=== PATIENT | female | born 1935 | race Caucasian/White ===

== ENCOUNTER 2020-04-08 12:44 | Inpatient (IN) | payer OTHER, SELFPAY ==
[~2020-04-08] VITALS: Ht 165.1 cm; Wt 46.7 kg
--- NOTE | 2020-04-08 12:46 | NUR ---
BIBA TAKEN TO BED 10
[2020-04-08 12:52] VITALS: BP 86/46
--- NOTE | 2020-04-08 12:55 | NUR ---
pt noted to have soiled herself, pt clean up by juliana Colmenares and juliana Caba. warm blankets, cleanlinens and gown given. IV fluids running with no s/s of infiltration noted.
[2020-04-08] MEDS ORDERED: NACL 0.9% 1,000 ML IV SCH (12:56)
[2020-04-08] MEDS ORDERED: cefTRIAXone 1,000 MG in DEXT 5% MINI-BAG PLUS 50 ML IV ONE (13:00)
[2020-04-08 13:26] LABS: BASOPHILS # (AUTO) 0.1 K/uL (0.00-0.22); BASOPHILS % (AUTO) 0.7 % (0.0-2.0); EOSINOPHILS # (AUTO) 0.1 K/uL (0-0.4); EOSINOPHILS % (AUTO) 1.6 % (0.0-4.0); HEMATOCRIT 33.6 % (36-48); HEMOGLOBIN 11.5 g/dL (12.0-16.0); LYMPHOCYTES # (AUTO) 0.9 K/uL (2.5-16.5); MEAN CORPUSCULAR HEMOGLOBIN 33 pg (27-31); MEAN CORPUSCULAR HGB CONC 34 g/dL (33-37); MEAN CORPUSCULAR VOLUME 97.6 fL (80-94); MONOCYTES # (AUTO) 0.6 K/uL (0.8-1.0); MONOCYTES % (AUTO) 7.6 % (1.7-9.3); NEUTROPHILS # (AUTO) 6.8 K/uL (1.8-7.7); NEUTROPHILS % (AUTO) 80.1 % (42.2-75.2); PLATELET COUNT (AUTO) 322 K/uL (140-450); RED BLOOD CELL COUNT(AUTO) 3.45 MIL/uL (4.20-5.40); RED CELL DISTRIBUTION WIDTH 13.2 % (11.6-13.7); WHITE BLOOD COUNT (AUTO) 8.5 K/uL (4.8-10.8)
--- NOTE | 2020-04-08 13:30 | NUR ---
# 14 FR Urinary catheter inserted utilizing sterile technique. Immediate return of cl yellow urin ml 30 urine noted. Urine sample collected and sent to lab. Pt tolerated procedure well.
[2020-04-08] MEDS ORDERED: cefTRIAXone 1,000 MG VIAL ONE (13:41)
[2020-04-08 13:45] LABS: APPEARANCE,URINE CLEAR (CLEAR); BILIRUBIN,URINE NEGATIVE (NEGATIVE); BLOOD, URINE NEGATIVE (NEGATIVE); COLOR,URINE YELLOW (YELLOW); LEUKOCYTE ESTERASE ,URINE NEGATIVE (NEGATIVE); NITRITE, URINE NEGATIVE (NEGATIVE); UGLUCOSE NEGATIVE (NEGATIVE)
[2020-04-08 13:46] LABS: ANION GAP 13.8 (8-16); CARBON DIOXIDE 27.3 mmol/L (21-32); CHLORIDE 101 mmol/L (98-107); GLUCOSE 118 mg/dL (74-106); POTASSIUM 4.1 mmol/L (3.5-5.1); SODIUM SERUM 138 mmol/L (136-145); UREA NITROGEN, BLOOD 23 mg/dL (7-18)
[2020-04-08 13:47] LABS: ALBUMIN 2.3 g/dL (3.4-5.0); ASPARTATE AMINOTRANSFERASE 15 U/L (15-37); CREATININE 0.8 mg/dL (0.6-1.3); TOTAL BILIRUBIN 0.1 mg/dL (0.0-1.0)
--- NOTE | 2020-04-08 13:50 | NUR ---
RECEIVED REPORT FROM ER NURSE. PT IN BED. ALERT AND ORIENTED X1, NO C/O PAIN, NO SOB, RESPIRATIONS ARE EVEN AND UNLABORED, NONAMBULATORY. ON ROOM AIR. WITH IV ON RAC 18G. SKIN INTACT. SAFETY MEASURES IN PLACE. CALL LIGHT WITHIN REACH. WILL CONTINUE TO MONITOR.
--- NOTE | 2020-04-08 13:50 | NUR ---
ua,blood,covid,blood x2 for c&s, influenza, ekg, xray, er md dr resendiz at bedside
[2020-04-08] MEDS: NACL 0.9% 1,000 ML IV SCH (13:51)
[2020-04-08] MEDS ORDERED: ONDANSETRON 4 MG/2 ML VIAL IM/IVP PRN (13:55)
[2020-04-08] MEDS ORDERED: HYDROcodone/APAP 7.5/325 MG 1 TAB PO PRN (13:55)
[2020-04-08] MEDS ORDERED: ACETAMINOPHEN 325 MG TAB PO PRN (13:55)
[2020-04-08] MEDS ORDERED: DOCUSATE SODIUM 100 MG GELCAP PO PRN (13:55)
[2020-04-08] MEDS ORDERED: NACL 0.9% 500 ML IV ONE (14:00)
[2020-04-08] MEDS ORDERED: FLUT0.0571 NS (14:12)
[2020-04-08] MEDS ORDERED: FURO-572 PO (14:12)
[2020-04-08] MEDS ORDERED: LISI10TA11 PO (14:12)
[2020-04-08] MEDS ORDERED: METF500T2 PO (14:12)
[2020-04-08] MEDS ORDERED: ATOR10TA PO (14:12)
[2020-04-08] MEDS ORDERED: ISOS20TA13 PO (14:12)
[2020-04-08] MEDS ORDERED: DOCU-299 PO (14:12)
[2020-04-08] MEDS ORDERED: CARV3.12 PO (14:12)
[2020-04-08] MEDS ORDERED: RISP0.5T3 PO (14:12)
[2020-04-08] MEDS ORDERED: GLIP5TER PO (14:12)
[2020-04-08 14:24] LABS: MAGNESIUM 1.6 mg/dL (1.8-2.4); PHOSPHORUS 3.2 mg/dL (2.5-4.9)
[2020-04-08 14:25] LABS: CHOL/HDL RATIO 2.9 (1-4.5)
[2020-04-08 14:26] LABS: FREE T4 (FREE THYROXINE) 1.06 ng/dL (0.76-1.46); THYROID STIMULATING HORMONE 1.53 uIU/mL (0.34-3.74)
[2020-04-08] MEDS ORDERED: CLOP75TA26 PO (14:37)
[2020-04-08] MEDS ORDERED: METF-988 PO (14:37)
[2020-04-08 14:46] LABS: PROTHROMBIN TIME 9.9 secs (10.8-13.4)
--- NOTE | 2020-04-08 14:50 | NUR ---
Patient will be admitted to care of DR RAMOS. Admited to TELE. Will go to room 118. Belongings list completed. Report to PARKER SANDOVAL.
[2020-04-08] MEDS ORDERED: MECLIZINE 25 MG TAB PO PRN (15:00)
[2020-04-08] MEDS ORDERED: INSULIN LISPRO SLIDING SCALE 100 UNITS/ML VIAL SUBQ PRN (15:00)
[2020-04-08 16:00] VITALS: BP 108/59
--- NOTE | 2020-04-08 17:00 | NUR ---
PERCARE DONE WITH TIER TRUCK DRIVER. NO BM NOTED. BLOOD SUGAR 128. NO COVERAGE NEEDED. DUE MEDS GIVEN
[2020-04-08] MEDS: metFORMIN 500 MG TAB PO SCH (17:06)
[2020-04-08] MEDS: BLOOD GLUCOSE MONITORING 1 DEV DEV FS SCH ×2 (17:06→21:16)
--- NOTE | 2020-04-08 18:00 | NUR ---
PT HAD AN UNWITNESSED FALL. PT SEEN SITTING ON THE FLOOR LEANING BY THE SINK. PT PULLED OUT IV, PULLED OUT TELE MONITOR, AND DISROBED. SIDE RAILS WERE UP, BED IN LOW IN POSITION. INITIAL ASSESSMENT DONE. NO OPEN WOUND OR DISCOLORATION NOTED. PT IS THAI SPEAKING ONLY. THAI SPEAKING CNAS PRESENT TO ASSIST PATIENT. NO C/O PAIN, RESPIRATIONS ARE EVEN AND UNLABORED. WITH CONFUSION PER THAI CNAS. WITH EPISODES OF YELLING AND CURSING AT STAFF ALSO WITH EPISODES OF SCRATCHING STAFF. ASSISTED PT BACK TO BED. RES MD MADE AWARE WITH NEW ORDERS FOR SOFT WRIST RESTRAINTS AND IMAGING TO CHECK FOR FRACTURE
--- NOTE | 2020-04-08 18:40 | NUR ---
PT IN BED AT THIS TIME ATTEMPTING TAKE OFF RESTRAINTS. STILL WITH EPISODE OF SCRATCHING AND YELLING AT STAFF. FLACC 0, NO SOB NOTED. SAFETY PRECAUTIONS AND ALARMS IN PLACE
[2020-04-08] MEDS: MIDODRINE 5 MG TAB PO SCH (18:49)
--- NOTE | 2020-04-08 18:50 | NUR ---
PT OFF UNIT TO RADIOLOGY
--- NOTE | 2020-04-08 19:07 | NUR ---
EKG WAS PERFORMED AND A COPY WAS PROVIDED TO NURSES
--- NOTE | 2020-04-08 19:08 | NUR ---
RECEIVED BEDSIDE REPORT FROM DAY RN. PT OFF UNIT FOR CT HEAD AND CT ABD/PELVIS. PER RN PT IS AAOX1 SLOVAK SPEAKING ONLY. DX:PNA,CP R/O COVID. ISOLATION PER PROTOCOL. PT IS ON ROOM AIR SAT WELL. IV ON R FA 22G INFUSING NS AT 60ML/H. SKIN INTACT. BEDREST. ON NON BEHAVIORAL SOFT WRIST RESTRAINTS D/T PULLING OFF LINES. PT IS DNR. PT IN INCONTINENT.
[2020-04-08 20:00] VITALS: BP 116/62
--- NOTE | 2020-04-08 20:00 | NUR ---
PT BACK FROM CT NO S/S OF DISTRESS. BRIDGE CREW MEMBER FEEDING PT. WILL CONTINUE TO MONITOR.
[2020-04-08] MEDS ORDERED: CARVEDILOL 3.125 MG TAB PO SCH (21:00)
[2020-04-08] MEDS ORDERED: CRUSHER, PILL MC ONE (21:03)
[2020-04-08] MEDS: ATORVASTATIN 20 MG TAB PO SCH (21:07)
[2020-04-08] MEDS: risperiDONE 1 MG TAB PO SCH (21:07)
--- NOTE | 2020-04-08 21:07 | NUR ---
VSS. KATINA MEDICATIONS GIVEN. BG 157 WILL HOLD COVERAGE PT JUST ATE DINNER. PT VERY CONFUSED AAOX1 REMOVED RESTRAINTS TO ASSESS CIRCULATION PT ATTEMPT TO GET OUT OF BED TO GO BUY COFFEE AND REMOVING IV. REAPPLIED FOR SAFETY. BED ALARM ON. WILL ROUND FREQUENTLY
--- NOTE | 2020-04-08 22:30 | NUR ---
PATIENT IS RESTING COMFORTABLY IN BED NO S/S OF DISTRESS.
[2020-04-08] MEDS ORDERED: MAG SULF 2000 MG/WATER PREMIX 50 ML IV ONE (22:50)
--- NOTE | 2020-04-08 23:45 | NUR ---
VSS. MG RIDER FOR MG LEVEL 1.6 NOW INFUSING PER ORDERS. PT IS AGITATED AND YELLING IN DOMINICAN TO NURSE. CHECKED RESTRAINTS REAPPLIED D/T COMBATIVE AND DISRUPTION OF MEDICAL LINES. ALL SAFETY MEASURES ARE IN PLACE. WILL CONTINUE TO MONITOR.
[2020-04-09] VITALS: BP 154/74
--- NOTE | 2020-04-09 02:05 | NUR ---
PT IS AWAKE LAYING COMFORTABLY IN BED. RESTRAINTS REMAIN ON FOR SAFETY. SAT WELL ON ROOM AIR. WILL CONTINUE TO MONITOR.
[2020-04-09 04:00] VITALS: BP 163/79
--- NOTE | 2020-04-09 04:00 | NUR ---
VITAL SIGNS ARE WITHIN NORMAL LIMITS. ALL SAFETY MEASURES ARE IN PLACE. CALL LIGHT IS WITHIN REACH.
--- NOTE | 2020-04-09 05:13 | NUR ---
FED PATIENT AN APPLESAUCE PER REQUEST. PT TOLERATED WELL. ALL NEEDS MET. WILL CONTINUE TO MONITOR.
[2020-04-09] MEDS: NACL 0.9% 1,000 ML IV SCH ×2 (06:17→14:37)
[2020-04-09] MEDS: MIDODRINE 5 MG TAB PO SCH (06:17)
[2020-04-09] MEDS: BLOOD GLUCOSE MONITORING 1 DEV DEV FS SCH ×4 (06:17→20:31)
[2020-04-09] MEDS: CARVEDILOL 3.125 MG TAB PO SCH ×2 (06:20→11:30)
[2020-04-09] MEDS: LISINOPRIL 10 MG TAB PO SCH ×2 (06:20→11:30)
--- NOTE | 2020-04-09 06:20 | NUR ---
BG 132 NO COVERAGE NEEDED. ALL SAFETY MEASURES ARE IN PLACE. CALL LIGHT IS WITHIN REACH.
[2020-04-09 06:27] LABS: T4 (THYROXINE) 6.1 ug/dL (4.5-12.0)
--- NOTE | 2020-04-09 06:38 | NUR ---
KATINA MEDICATION WERE NOT GIVEN D/T PT REFUSING. PT AGITATED AT THIS TIME KICKING AND SCRATCHING. ATTEMPT TO CALM PT DOWN UNSUCCESSFUL WILL TRY AGAIN LATER. SAFETY MEASURES ARE IN PLACE.
[2020-04-09 07:23] LABS: BASOPHILS # (AUTO) 0.1 K/uL (0.00-0.22); BASOPHILS % (AUTO) 1.1 % (0.0-2.0); EOSINOPHILS # (AUTO) 0.2 K/uL (0-0.4); EOSINOPHILS % (AUTO) 3.1 % (0.0-4.0); HEMATOCRIT 36.2 % (36-48); HEMOGLOBIN 12.3 g/dL (12.0-16.0); LYMPHOCYTES # (AUTO) 1.3 K/uL (2.5-16.5); LYMPHOCYTES % (AUTO) 16.1 % (20.5-51.1); MEAN CORPUSCULAR HEMOGLOBIN 33 pg (27-31); MEAN CORPUSCULAR HGB CONC 34 g/dL (33-37); MEAN CORPUSCULAR VOLUME 97.5 fL (80-94); MONOCYTES # (AUTO) 0.7 K/uL (0.8-1.0); NEUTROPHILS # (AUTO) 5.6 K/uL (1.8-7.7); NEUTROPHILS % (AUTO) 70.7 % (42.2-75.2); PLATELET COUNT (AUTO) 311 K/uL (140-450); RED BLOOD CELL COUNT(AUTO) 3.72 MIL/uL (4.20-5.40); RED CELL DISTRIBUTION WIDTH 13.5 % (11.6-13.7); WHITE BLOOD COUNT (AUTO) 7.9 K/uL (4.8-10.8)
[2020-04-09 07:25] LABS: ANION GAP 15.7 (8-16); CHLORIDE 104 mmol/L (98-107); CREATININE 0.7 mg/dL (0.6-1.3); GLUCOSE 112 mg/dL (74-106); POTASSIUM 3.7 mmol/L (3.5-5.1); SODIUM SERUM 139 mmol/L (136-145); UREA NITROGEN, BLOOD 15 mg/dL (7-18)
--- NOTE | 2020-04-09 07:30 | NUR ---
RECEIVED BEDSIDE REPORT FROM RN UROLOGY RN, LOAN, FOR CONTINUITY OF CARE. PT. IS IN BED AND ASLEEP. PT IS AAOX1 FAROESE SPEAKING ONLY, ABLE TO MAKE NEEDS KNOWN. DROPLET ISOLATION PER PROTOCOL. PT IS ON ROOM AIR WITH SAO2 OF 96%, RESPIRATIONS EVEN AND UNLABORED, DRY COUGH PRESENT. IV ON R FA 22G INFUSING NS AT 60ML/H, INTACT AND FLUSHES WELL. SKIN INTACT. BEDREST. ON NON BEHAVIORAL SOFT WRIST RESTRAINTS D/T PULLING OFF LINES. POC DISCUSSED. CALL LIGHT WITHIN REACH. SAFETY PRECAUTIONS IN PLACE. WILL CONTINUE TO MONITOR.
--- NOTE | 2020-04-09 07:33 | NUR ---
GAVE BEDSIDE REPORT TO DAY RN. PT ENDORSED IN STABLE CONDITION.
[2020-04-09 08:00] VITALS: BP 164/61
[2020-04-09] MEDS: glipiZIDE ER 5 MG TABER PO SCH ×2 (08:00→11:30)
[2020-04-09] MEDS: metFORMIN 500 MG TAB PO SCH ×3 (08:00→17:02)
[2020-04-09 08:07] LABS: FOLIC ACID 11.2 ng/mL (>3.0)
--- NOTE | 2020-04-09 08:15 | NUR ---
PT. REFUSED ASSESSMENT. PT. IS UNCOOPERATIVE, SCRATCHING AND SPITING. V/S TAKEN WITH BP 164/61, HR 70, SAO2 92%, T 96.8F, RR 18. AAOX1, GCS 14, RESPONDS TO NAME, SPONTANEOUS EYE MOVEMENT, VERBALLY CONFUSED. PT. VERBALIZES NOT WANTING TO TAKE ANY ORAL MEDICATIONS. ROCEPHIN IVP GIVEN. PT. VERBALIZES NO PAIN. WILL REPORT TO MD ABOUT HIGH BLOOD PRESSURE AND PT'S AGGRESSION. WILL CONTINUE TO MONITOR.
[2020-04-09] MEDS: CLOPIDOGREL 75 MG TAB PO SCH ×2 (08:40→11:30)
[2020-04-09] MEDS: risperiDONE 1 MG TAB PO SCH ×2 (08:40→21:39)
[2020-04-09] MEDS: ISOSORBIDE DINITRATE 10 MG TAB PO SCH ×2 (08:40→11:30)
[2020-04-09] MEDS: AZITHROMYCIN 250 MG TAB PO SCH ×2 (08:40→11:30)
--- NOTE | 2020-04-09 08:50 | NUR ---
[facility] WILL CONTINUE TO MONITOR.
[2020-04-09] MEDS ORDERED: FUROSEMIDE 20 MG TAB PO SCH (09:00)
[2020-04-09] MEDS ORDERED: LISINOPRIL 10 MG TAB PO SCH (09:00)
[2020-04-09] MEDS ORDERED: AZITHROMYCIN 250 MG TAB PO SCH (09:00)
--- NOTE | 2020-04-09 09:42 | NUR ---
INFORMATICS PHYSICIAN NOTE: Basic Screen: Yes High Risk DC Screen [place]: RYAN Law Relationship: DAUGHTER Pre-Admission Living Arrangements: SNF Other: [facility] Prior ADL Independent Current Home Health Name/Tel: N/A Current DME/02 Name/Tel: [facility] Current Hospice Name/Tel: N/A Current Dialysis Name/Tel: N/A Healthcare Decision Maker: Patient Advance Directive No Physician Orders for Life Sustaining Treatment Form No Patient/Family Have Educational Needs No Discipline: Case Mgt/Social Svcs Tentative Discharge Plan/Destination: SNF/ECF Other: [facility] Will require assistance post discharge: No Referred to Center Line Cutter Operator: No Tentative Discharge Plan Summary: PATIENT IS A 84-YEAR-OLD FEMALE ADMITTED FOR CHEST PAIN, PNEUMONIA, AND COVID R/O. PATIENT HAS PMHX OF DIABETES, HTN, HLD, AGINA, CAD, AND SCHIZOPHRENIA. PATIENT [facility] AD[facility] FROM [facility]. ROGERIO CONTACTED FABY FROM [facility] [place] [phone]. PER FABY, PATIENT IS SKILLED AND IS CURRENTLY ON A BED HOLD. FABY STATED THAT PATIENT IS NOT ALERT/ORIENTED AT BASELINE AND REQUIRES TOTAL ASSISTANCE WITH ADLS. TENTATIVE DISCHARGE PLAN IS TO RETURN TO [facility]. NO FURTHER NEEDS IDENTIFIED. Signature: JOHN SARAVIA Date: Apr 09, 2020 Time: 09:39
--- NOTE | 2020-04-09 09:45 | NUR ---
REPORTED TO DR. DELONG ABOUT PT'S AGGRESSION AND REFUSAL TO TAKE MEDS. NEW ORDERS TO GIVEN ATIVAN 0.25MG AND RE-ATTEMPT TO GIVE MEDICATIONS AFTER GIVING ATIVAN. WILL CONTINUE TO MONITOR.
--- NOTE | 2020-04-09 10:44 | NUR ---
PATIENT HAS BEEN SCREENED AND CATEGORIZED HIGH NUTRITION RISK. PATIENT WILL BE SEEN WITHIN 1-2 DAYS OF ADMISSION. 04/09/20-04/10/[address]
--- NOTE | 2020-04-09 10:55 | NUR ---
ECHOCARDIOGRAM PENDING DUE TO R/O COVID-19. WILL PROCEED WITH EXAM WHEN RESULT COMES BACK
[2020-04-09] MEDS: LORazepam 2 MG/ML VIAL IVP PRN ×2 (11:04→23:14)
--- NOTE | 2020-04-09 11:05 | NUR ---
ATIVAN IVP 0.25MG GIVEN FOR AGITATION AND AGGRESSION. NO SIGNS OF DISTRESS NOTED. WILL REATTEMPT TO GIVE MORNING MEDICATIONS.
--- NOTE | 2020-04-09 11:30 | NUR ---
MORNING MEDICATIONS GIVEN. PT. IS MORE CALM AND MORE ALERT AFTER ATIVAN DOSE. PT. AGREES TO TAKE MEDICATION. WILL CONTINUE TO MONITOR.
[2020-04-09 12:00] VITALS: BP 104/59
--- NOTE | 2020-04-09 12:45 | NUR ---
V/S TAKEN AND IS WNL. NO SIGNS OF DISTRESS AND PT. VERBALIZES NO PAIN. ATTEMPTED TO FEED LUNCH TO PT. BUT PT. REFUSES AND REPEATEDLY SPITTED. WILL CONTINUE TO MONITOR.
--- NOTE | 2020-04-09 12:47 | NUR ---
DC PLANNIN YRS OLD FEMALE PATIENT WAS ADMITTED FROM HOME WITH A DX OF [facility] WITH A DX OF CHEST PAIN, PNEUMONIA AND R/O COVID. PATIENT HAS A HISTORY OF DM, HTN, HLD, ANGINA ,CAD AND SCHIZOPHRENIA. EKG SR TROPX1 NEGATIVE , HOLD ALL HOME MEDS CXR SHOWED MILD LEFT BASILAR ATELECTASIS . ADMINISTER ROCEPHIN AND AZITHROMYCIN RT PROTOCOL, COVID TEST BLOOD ,SPUTUM AND URINE CULTURE PENDING. CONSULTED WITH PULMO AND REGIONAL SAFETY MANAGER. DC PLAN TO GO BACK TO [facility] WHEN STABLE. CM TO FOLLOW Addendum: 04/10/20 at 1116 by Mary Lora CM DC PLANNING: CONID TEST NEGATING ,WAITING FOR THE 2ND COVID TEST. SEEN BY MANAGER SIGN DR CRUZ ,RECOMMENDED TO CONTINUE IV ABX , MDI BRONCHODILATORS. REGIONAL SAFETY MANAGER DR DUONG TO CONTINUE WITH CARDIAC MEDS . DC PLAN AWAITING FOR THE 2ND COVID TEST AND RETURN TO [facility] .CM TO FOLLOW. Addendum: 04/11/20 at 1145 by Mary Lora CM DC PLANNINND COVID TEST NEGATIVE. SEEN BY PULMO AND CARDIO DR CRUZ CONTINUE IV ABX AND FOLLOW UP SPUTUM CULTURE AND CONTINUE HTN MEDS AND STATIN. CM TO FOLLOW. Addendum: 04/12/20 at 0915 by Jolynn Garrett CM RECEIVED ORDER FOR D/C BACK TO [facility]. FAXED OVER PATIENTS CLINICALS. Addendum: 04/12/20 at 1010 by Jolynn Garrett CM PATIENT WILL BE DISCHARGED BACK TO [facility] TODAY ROOM [address] CALVILLO. Addendum: 04/12/20 at 1117 by Jolynn Garrett CM SPOKE TO PATIENTS DAUGHTER RYAN SCHWARTZ [phone] AND DISCUSSED DISCHARGE BACK TO [facility] AND PATIENTS RIGHTS OF MEDICARE. SET UP TRANSPORTATION WITH [employer] PROVIDED FROM [facility] AUTH # [id number]. NOTIFIED BHARGAVI AT [facility] AND P[facility]ER [place]. Addendum: 04/12/20 at 1118 by Jolynn Garrett CM BHARGAVI CHANGED PATIENTS ROOM TO 35 A
--- NOTE | 2020-04-09 15:10 | NUR ---
04/09/20 RD INITIAL ASSESSMENT COMPLETED PLEASE REFER TO NUTRITION ASSESSMENT UNDER CARE ACTIVITY FOR ESTIMATED NUTRITIONAL NEEDS. 1. RECOMMEND MECHANICAL SOFT CCHO 60GM AND NA2GM DIET TOLERATED 2. RECOMMEND GLUCERNA BID 3. ENCOURAGE PO INTAKE AND PROVIDE ASSISTANCE WITH MEALS 4. RD TO FOLLOW-UP 2-3 DAYS, HIGH RISK MAVERICK BAUER, RD
--- NOTE | 2020-04-09 15:16 | NUR ---
CALLED [facility] REGARDING PT'S VACCINATION RECORDS. PT. REFUSED BOTH FLU AND PNA VACCINE IN [facility] FACILITY. WILL CONTINUE TO MONITOR.
[2020-04-09 16:00] VITALS: BP 121/70
--- NOTE | 2020-04-09 19:15 | NUR ---
RECEIVED ENDORSEMENT FROM AM SHIFT RN. PATIENT IS LYING IN BED. RESPIRATION EVEN AND UNLABORED. DENIES PAIN. WITH BILATERAL HAND RESTRAIN NOTED. WITH IV SITE AT RFA 22G INFUSING IVF. FALL RISK PROTOCOL IN PLACE. PATIENT IS DNR. ALLERGIC TO ASA. PATIENT IS R/O COVID. DROPLET PRECAUTION ISOLATION OBSERVED AT ALL TIMES. PLAN OF CARE WAS DISCUSSED. CALL LIGHT WITHIN REACH. WILL CONTINUE TO MONITOR.
--- NOTE | 2020-04-09 19:20 | NUR ---
ENDORSED TO PM SHIFT RNKIM, FOR CONTINUITY OF CARE.
[2020-04-09 20:00] VITALS: BP_SYST 104; BP_SYST 145; BP_DIAS 49; BP_DIAS 56
--- NOTE | 2020-04-09 21:15 | NUR ---
RFA IV LINE DISLODGED. RE-INSERTED NEW IV LINE AT RH 22G. ATTEMPTED X1 WITH GOOD BLOOD RETURN.
[2020-04-09] MEDS: ATORVASTATIN 20 MG TAB PO SCH (21:39)
--- NOTE | 2020-04-09 21:45 | NUR ---
DUE MEDS GIVEN ORDERED. TOLERATED WELL. KEPT CLEAN AND DRY AND COMFORTABLE. WILL CONTINUE TO MONITOR.
--- NOTE | 2020-04-09 23:11 | NUR ---
PATIENT IS AWAKE AND SITTING ON BED. TRYING TO GET OOB. RESTRAIN DISLODGED. PUT PATIENT IN LYING POSITION. RESTRAIN ATTACHED. KEPT COMFORTABLE. WILL CONTINUE TO MONITOR.
[2020-04-10] VITALS: BP 155/76
[2020-04-10] MEDS ORDERED: LORazepam 2 MG/ML VIAL IVP ONE (02:35)
--- NOTE | 2020-04-10 03:01 | NUR ---
PATIENT IS TRYING TO GET OOB, ANXIOUS AND RESTLESS. DENIES PAIN. NO SOB. V/S 143/68. HR 75. INFORMED RESIDENT HE ORDERED ATIVAN 1MG IVP ONCE. NOTED AND CARRIED OUT. ATIVAN GIVEN ORDERED. TOLERATED WELL. WILL CONTINUE TO MONITOR.
[2020-04-10 04:00] VITALS: BP 143/68
--- NOTE | 2020-04-10 05:30 | NUR ---
PATIENT CARE DONE. KEPT CLEAN AND DRY. DENIES PAIN. WILL CONTINUE TO MONITOR.
[2020-04-10] MEDS: BLOOD GLUCOSE MONITORING 1 DEV DEV FS SCH ×4 (06:16→21:17)
[2020-04-10 07:03] LABS: BASOPHILS # (AUTO) 0.1 K/uL (0.00-0.22); EOSINOPHILS # (AUTO) 0.3 K/uL (0-0.4); HEMATOCRIT 33.2 % (36-48); HEMOGLOBIN 11.3 g/dL (12.0-16.0); MEAN CORPUSCULAR HEMOGLOBIN 33 pg (27-31); MEAN CORPUSCULAR HGB CONC 34 g/dL (33-37); MEAN CORPUSCULAR VOLUME 97.7 fL (80-94); MONOCYTES # (AUTO) 0.4 K/uL (0.8-1.0); NEUTROPHILS # (AUTO) 3.7 K/uL (1.8-7.7); PLATELET COUNT (AUTO) 275 K/uL (140-450); RED CELL DISTRIBUTION WIDTH 13.2 % (11.6-13.7); WHITE BLOOD COUNT (AUTO) 5.4 K/uL (4.8-10.8)
--- NOTE | 2020-04-10 07:20 | NUR ---
PATIENT IS IN BED. CONTINUE ON BILATERAL SOFT WRIST RESTRAIN. NO SOB. ENDORSED TO AM SHIFT RN FOR CONTINUITY OF CARE.
--- NOTE | 2020-04-10 07:24 | NUR ---
RECEIVED REPORT FROM PLATING INSPECTOR RN FOR CONTINUITY OF CARE. PT IS AAOX3, CONFUSED AND UNABLE TO UNDERSTAND PROPER SAFETY MEASURES. PATIENT IS LYING IN BED. RESPIRATION EVEN AND UNLABORED. DENIES PAIN. WITH BILATERAL SOFT WRIST RESTRAINTS NOTED. WITH IV SITE AT RIGHT WRIST 22G INFUSING IVF. FALL RISK PROTOCOL IN PLACE. PATIENT IS DNR. ALLERGIC TO ASPIRIN. PATIENT IS R/O COVID. DROPLET PRECAUTION ISOLATION OBSERVED AT ALL TIMES. PLAN OF CARE WAS DISCUSSED. CALL LIGHT WITHIN REACH. WILL MONITOR PT CLOSELY THROUGHOUT THE SHIFT.
[2020-04-10 07:51] LABS: ANION GAP 10.7 (8-16); CARBON DIOXIDE 24.6 mmol/L (21-32); CHLORIDE 108 mmol/L (98-107); GLUCOSE 82 mg/dL (74-106); POTASSIUM 3.3 mmol/L (3.5-5.1); SODIUM SERUM 140 mmol/L (136-145)
[2020-04-10 07:52] LABS: CREATININE 0.7 mg/dL (0.6-1.3); UREA NITROGEN, BLOOD 12 mg/dL (7-18)
[2020-04-10 08:00] VITALS: BP 153/72
[2020-04-10] MEDS: metFORMIN 500 MG TAB PO SCH ×2 (08:00→17:00)
[2020-04-10] MEDS: CARVEDILOL 3.125 MG TAB PO SCH ×2 (09:36→09:44)
[2020-04-10] MEDS: AZITHROMYCIN 250 MG TAB PO SCH ×2 (09:43→09:45)
[2020-04-10] MEDS: risperiDONE 1 MG TAB PO SCH ×2 (09:44→20:50)
[2020-04-10] MEDS: ISOSORBIDE DINITRATE 10 MG TAB PO SCH (09:45)
[2020-04-10] MEDS: LISINOPRIL 10 MG TAB PO SCH (09:45)
[2020-04-10] MEDS: CLOPIDOGREL 75 MG TAB PO SCH (09:45)
--- NOTE | 2020-04-10 09:54 | NUR ---
ADMINISTERED MORNING MEDS TO PT. PT TOLERATED WELL. ALL NEEDS CURRENTLY MET. WILL CONTINUE TO ROUND FREQUENTLY ON PT.
--- NOTE | 2020-04-10 11:36 | NUR ---
PT SLEEPING. ALL NEEDS MET. WILL CONTINUE TO ROUND ON PT.
[2020-04-10 12:00] VITALS: BP 101/63
--- NOTE | 2020-04-10 13:09 | NUR ---
PT SLEEPING. AL NEEDS MET. PT ON RESTRAINTS. WILL CONTINUE TO ROUND FREQUENTLY ON PT. ALL SAFETY MEASURES IN PLACE. PT CAMERA NOT WORKING. SAUMYA DIRECTOR MADE AWARE. ENGINEERING PAGED BUT NOT FIXED YET. WILL CONTINUE TO ROUND FREQUENTLY TO ASSESS PT SAFETY ON RESTRAINTS.
--- NOTE | 2020-04-10 14:02 | NUR ---
HX: SCHIZOPHRENIA PATIENT UNABLE TO FOLLOW COMMANDS FOR INCENTIVE SPIROMETRY THERAPY
[2020-04-10] MEDS ORDERED: KCL 20 MEQ/WATER INJ PREMIX 200 ML IV PRN (14:45)
[2020-04-10] MEDS: NACL 0.9% 1,000 ML IV SCH (15:16)
[2020-04-10] MEDS ORDERED: POTASSIUM CHLORIDE 40 MEQ, LIDOCAINE MPF 1% 25 MG in NACL 0.9% 250 ML IV PRN ×6 (15:30)
--- NOTE | 2020-04-10 15:32 | NUR ---
PT LAYING IN BED WATCHING TV. NO S/S OF DISTRESS OR PAIN. WILL CONTINUE TO ROUND FREQUENTLY ON PT.
[2020-04-10 16:00] VITALS: BP 150/66
--- NOTE | 2020-04-10 19:26 | NUR ---
ENDORSED PT TO DIRECTOR CLINICAL APPLICATIONS FOR CONTINUITY OF CARE. PT IN STABLE CONDITION AT THIS TIME.
--- NOTE | 2020-04-10 19:27 | NUR ---
RECEIVED REPORT FROM DAYSHIFT NURSE FOR CONTINUITY OF CARE. PATIENT AWAKE IN BED. NO SIGNS OF DISTRESS NOTED. SKIN AND NEUROVASCULAR CHECK PERFORMED FOR RESTRAINTS SKIN INTACT. IV INFUSING WITHOUT DIFFICULTY NO SIGNS OF INFILTRATION. TELE MONITOR ATTACHED AND SAFETY MEASURES IN PLACE.
[2020-04-10 20:00] VITALS: BP 145/73
[2020-04-10] MEDS: ATORVASTATIN 20 MG TAB PO SCH (20:50)
--- NOTE | 2020-04-10 20:51 | NUR ---
ADMINISTERED 2100 MEDICATIONS TO PATIENT. PATIENT TOLERATED WELL NO SIGN OF DISTRESS NOTED.
[2020-04-10] MEDS: LORazepam 2 MG/ML VIAL IVP PRN (23:47)
--- NOTE | 2020-04-10 23:47 | NUR ---
PATIENT KEPT TRYING TO GET OUT OF BED EVEN WITH REORIENTATION PATIENT WAS AT RISK OF FALL AND VERY AGITATED WHEN REORIENTATION PROVIDED. ADMINISTERED PRN ATIVAN PER MD ORDER. PATIENT TOLERATED WELL. NO SIGNS OF DISTRESS NOTED. WILL CONTINUE TO MONITOR
[2020-04-11] VITALS: BP 140/68
--- NOTE | 2020-04-11 01:02 | NUR ---
REASSESSED FOR EFFECTIVENESS OF ATIVAN. PATIENT STILL AWAKE AND TRYING TO REMOVED HERSELF FROM THE BED. RESIDENT INFORMED. HE EVALUATED THE PATIENT AND SAID IF PATIENT CONTINUES TO TRY TO REMOVE HERSELF FROM BED AND REMAINS AGITATED HE WILL CONSIDER ALTERNATIVE MEDICATION. NFA AT THIS TIME
--- NOTE | 2020-04-11 02:50 | NUR ---
ROUNDING PATIENT. RESTING. NO SIGN OF DISTRESS NOTED. WILL CONTINUE TO MONITOR
[2020-04-11 04:00] VITALS: BP 134/86
--- NOTE | 2020-04-11 04:40 | NUR ---
OBTAINED AM VITALS AND ASSISTED SENIOR QUALITY MANAGER WITH AM CARE. CLEANSED IV SITE AND CHANGED DRESSING. PATIENT TOLERATED WELL. NO SIGNS OF DISTRESS NOTED.
[2020-04-11] MEDS: BLOOD GLUCOSE MONITORING 1 DEV DEV FS SCH ×4 (05:53→21:56)
--- NOTE | 2020-04-11 06:30 | NUR ---
ROUNDING PATIENT AWAKE IN BED NO SIGN OF DISTRESS NOTED. WILL CONTINUE TO MONITOR
[2020-04-11 06:55] LABS: BASOPHILS # (AUTO) 0.1 K/uL (0.00-0.22); EOSINOPHILS # (AUTO) 0.2 K/uL (0-0.4); EOSINOPHILS % (AUTO) 2.3 % (0.0-4.0); HEMATOCRIT 37.1 % (36-48); HEMOGLOBIN 12.6 g/dL (12.0-16.0); LYMPHOCYTES # (AUTO) 0.9 K/uL (2.5-16.5); LYMPHOCYTES % (AUTO) 11.4 % (20.5-51.1); MEAN CORPUSCULAR HEMOGLOBIN 33 pg (27-31); MEAN CORPUSCULAR HGB CONC 34 g/dL (33-37); MEAN CORPUSCULAR VOLUME 96.9 fL (80-94); MONOCYTES # (AUTO) 0.7 K/uL (0.8-1.0); MONOCYTES % (AUTO) 9.1 % (1.7-9.3); NEUTROPHILS # (AUTO) 5.7 K/uL (1.8-7.7); NEUTROPHILS % (AUTO) 76.2 % (42.2-75.2); PLATELET COUNT (AUTO) 321 K/uL (140-450); RED BLOOD CELL COUNT(AUTO) 3.82 MIL/uL (4.20-5.40); RED CELL DISTRIBUTION WIDTH 13.4 % (11.6-13.7); WHITE BLOOD COUNT (AUTO) 7.5 K/uL (4.8-10.8)
--- NOTE | 2020-04-11 07:25 | NUR ---
ENDORSED PATIENT TO DAYSHIFT NURSE AT BEDSIDE FOR CONTINUITY OF CARE. PATIENT IN STABLE CONDITION
--- NOTE | 2020-04-11 07:27 | NUR ---
RECEIVED PATIENT FROM NIGHT NURSE. PATIENT IS AWAKE, ALERT, ORIENTED TO SELF. RESP EVEN AND UNLABORED ON ROOM AIR. BILATERAL SOFT RESTRAINTS NOTED. RH 22 NOTED WITH NS 60ML/HR. BED IN LOW POSITION, CALL LIGHT IN PLACE. WILL CONTINUE TO MONITOR.
[2020-04-11 08:00] VITALS: BP 141/100
--- NOTE | 2020-04-11 08:20 | NUR ---
SOFT WRIST RESTRAINTS DISCONTINUE. PATIENT IS MOVED TO 107 FOR SAFETY.
[2020-04-11 09:19] LABS: CARBON DIOXIDE 23.3 mmol/L (21-32); CHLORIDE 108 mmol/L (98-107); CREATININE 0.8 mg/dL (0.6-1.3); GLUCOSE 113 mg/dL (74-106); POTASSIUM 5.3 mmol/L (3.5-5.1); SODIUM SERUM 140 mmol/L (136-145); UREA NITROGEN, BLOOD 11 mg/dL (7-18)
[2020-04-11] MEDS ORDERED: NACL 0.9% 250 ML IV SCH (09:50)
[2020-04-11] MEDS: LISINOPRIL 10 MG TAB PO SCH (10:26)
[2020-04-11] MEDS: AZITHROMYCIN 250 MG TAB PO SCH (10:26)
[2020-04-11] MEDS: ISOSORBIDE DINITRATE 10 MG TAB PO SCH (10:27)
[2020-04-11] MEDS: glipiZIDE ER 5 MG TABER PO SCH (10:27)
[2020-04-11] MEDS: metFORMIN 500 MG TAB PO SCH ×2 (10:27→17:19)
[2020-04-11] MEDS: risperiDONE 1 MG TAB PO SCH ×2 (10:28→21:55)
[2020-04-11] MEDS: CARVEDILOL 3.125 MG TAB PO SCH (10:28)
[2020-04-11] MEDS: CLOPIDOGREL 75 MG TAB PO SCH (10:28)
--- NOTE | 2020-04-11 10:30 | NUR ---
MORNING ROUTINE MEDICATIONS GIVEN. 141/100 77 18 96% ON RA. PATIENT TOLERATED WELL. PATIENT DENIES OF PAIN AT THIS TIME. PATIENT IS AWAKE ALERT AND ORIENTED TO SELF. PATIENT HAS INCOHERENT SPEECH, TALKING TO SELF, AND MAKING GESTURES AT UNSEEN OBJECTS. PATIENT IS ABLE TO MAKE NEEDS KNOWN THROUGH CNC APPLICATIONS ENGINEER. BED IN LOW POSITION, CALL LIGHT IN PLACE. WILL CONTINUE TO MONITOR.
[2020-04-11] MEDS: NACL 0.9% 1,000 ML IV SCH (10:49)
--- NOTE | 2020-04-11 11:20 | NUR ---
IV SITE TO RIGHT HAND NOTED TO BE PULLED. IV INSERT TO RIGHT UPPER ARM 20 DONE. NS 60ML/HR
[2020-04-11 12:00] VITALS: BP 113/68
[2020-04-11 16:00] VITALS: BP 131/90
--- NOTE | 2020-04-11 16:25 | NUR ---
BLOOD GLUCOSE 133. PATIENT CONTINUES TO HAVE INCOHERENT SPEECH, MUMBLING AT UNSEEN THINGS, VERY WATCHFUL OF HER SURROUNDING. PATIENT WAS REDIRECTED AND CALMED. PATIENT NOTED TO BE PULLING AT HER IV, NOW WRAPPED WITH LINDA BANDAGE TO SECURE. RESP EVEN AND UNLABORED ON RA. WILL CONTINUE TO MONITOR.
--- NOTE | 2020-04-11 19:16 | NUR ---
ENDORSED PATIENT TO NIGHT NURSE. PATIENT IN STABLE CONDITION.
[2020-04-11 20:00] VITALS: BP 146/78
[2020-04-11] MEDS: ATORVASTATIN 20 MG TAB PO SCH (21:55)
--- NOTE | 2020-04-11 21:56 | NUR ---
ASSISTED LEAD RAMP SERVICE MAN IN CLEANING AND REPOSITIONING PATIENT. SCHEDULED MEDICATIONS DUE GIVEN. WILL CONTINUE TO MONITOR.
--- NOTE | 2020-04-11 23:40 | NUR ---
PATIENT LYING DOWN IN BED CONFUSED. NO DISTRESS NOTED. WILL CONTINUE TO MONITOR.
[2020-04-12] VITALS: BP 144/66
--- NOTE | 2020-04-12 00:25 | NUR ---
PATIENT LYING DOWN IN BED CONFUSED, NO DISTRESS NOTED. CONDITION UNCHANGED. WILL CONTINUE TO MONITOR.
[2020-04-12] MEDS: NACL 0.9% 1,000 ML IV SCH ×2 (00:32→04:30)
--- NOTE | 2020-04-12 02:45 | NUR ---
PATIENT LYING DOWN IN BED CONFUSED, ON AND OFF SLEEPING. CONDITION UNCHANGED. WILL CONTINUE TO MONITOR.
[2020-04-12 04:00] VITALS: BP 110/58
--- NOTE | 2020-04-12 05:34 | NUR ---
PATIENT LYING DOWN IN BED SLEEPING, AROUSABLE BY VOICE. NO DISTRESS NOTED. CONDITION UNCHANGED. WILL CONTINUE TO MONITOR.
--- NOTE | 2020-04-12 05:35 | NUR ---
PATIENT HAS NO COUGH. SPUTUM STILL NEEDS TO BE COLLECTED IF PATIENT HAS COUGH. WILL CONTINUE TO MONITOR.
[2020-04-12] MEDS: BLOOD GLUCOSE MONITORING 1 DEV DEV FS SCH ×2 (05:43→12:06)
[2020-04-12 07:05] LABS: ANION GAP 12.5 (8-16); CARBON DIOXIDE 23.1 mmol/L (21-32); CHLORIDE 108 mmol/L (98-107); CREATININE 0.6 mg/dL (0.6-1.3); GLUCOSE 120 mg/dL (74-106); POTASSIUM 3.6 mmol/L (3.5-5.1); SODIUM SERUM 140 mmol/L (136-145); UREA NITROGEN, BLOOD 15 mg/dL (7-18)
[2020-04-12 07:09] LABS: BASOPHILS % (AUTO) 0.7 % (0.0-2.0); EOSINOPHILS # (AUTO) 0.2 K/uL (0-0.4); EOSINOPHILS % (AUTO) 2.4 % (0.0-4.0); HEMATOCRIT 36.2 % (36-48); HEMOGLOBIN 12.2 g/dL (12.0-16.0); LYMPHOCYTES # (AUTO) 0.6 K/uL (2.5-16.5); LYMPHOCYTES % (AUTO) 9.6 % (20.5-51.1); MEAN CORPUSCULAR HEMOGLOBIN 33 pg (27-31); MEAN CORPUSCULAR HGB CONC 34 g/dL (33-37); MEAN CORPUSCULAR VOLUME 97.4 fL (80-94); MONOCYTES # (AUTO) 0.6 K/uL (0.8-1.0); MONOCYTES % (AUTO) 9.4 % (1.7-9.3); NEUTROPHILS % (AUTO) 77.9 % (42.2-75.2); PLATELET COUNT (AUTO) 324 K/uL (140-450); RED BLOOD CELL COUNT(AUTO) 3.71 MIL/uL (4.20-5.40); RED CELL DISTRIBUTION WIDTH 13.1 % (11.6-13.7); WHITE BLOOD COUNT (AUTO) 6.4 K/uL (4.8-10.8)
--- NOTE | 2020-04-12 07:11 | NUR ---
GAVE REPORT TO SPECIAL TAX AUDITOR NURSE FOR CONTINUITY OF CARE. PATIENT IN STABLE CONDITION.
--- NOTE | 2020-04-12 07:13 | NUR ---
RECEIVED REPORT FORM NIGHT NURSE PT IS CONFUSED, AAOX1, ON ROOM AIR, IV SITES INTACT AND PATENT ON RIGHT UPPER ARM G 22. SAFETY MEASURES IN PLACE, CALL LIGHT WITHIN REACH WILL CONTINUE TO MONITOR.
[2020-04-12 08:00] VITALS: BP 146/77
[2020-04-12] MEDS: ISOSORBIDE DINITRATE 10 MG TAB PO SCH (08:16)
[2020-04-12] MEDS: metFORMIN 500 MG TAB PO SCH (08:16)
[2020-04-12] MEDS: AZITHROMYCIN 250 MG TAB PO SCH (08:17)
[2020-04-12] MEDS: glipiZIDE ER 5 MG TABER PO SCH (08:17)
[2020-04-12] MEDS: LISINOPRIL 10 MG TAB PO SCH (08:17)
[2020-04-12] MEDS: CARVEDILOL 3.125 MG TAB PO SCH (08:18)
[2020-04-12] MEDS: risperiDONE 1 MG TAB PO SCH (08:18)
[2020-04-12] MEDS: CLOPIDOGREL 75 MG TAB PO SCH (08:18)
--- NOTE | 2020-04-12 08:35 | NUR ---
MEDICATIONS DUE GIVEN, CHECK VITAL SIGNS PRIOR TO MEDICATION BP 146/77 [place]: 77. PT IS STABLE AND COOPERATIVE. SAFETY MEASURES IN PLACE, CALL LIGHT WITHIN REACH. WILL CONTINUE TO MONITOR.
[2020-04-12] MEDS ORDERED: METO25TA PO (08:50)
[2020-04-12] MEDS ORDERED: AZIT250T3 PO (08:51)
--- NOTE | 2020-04-12 10:28 | NUR ---
MADE ROUNDS AT THIS TIME PT IS SLEEPING AND STABLE. WILL CONTINUE TO MONITOR
--- NOTE | 2020-04-12 12:00 | NUR ---
BLOOD SUGAR MONITORING DONE AT THIS TIME PT BLOOD SUGAR IS 131 NO INSULIN COVERAGE
--- NOTE | 2020-04-12 14:15 | NUR ---
DISCHARGED INSTRUCTIONS GIVEN TO NURSE ARIZMENDI [place] [facility] [place] EFF[place], AND TO CALL FOR MEDICAL HELP IN CASE OF EMERGENCIES. IV SITES INTACT AND COMPLETE NO BLEEDING, RETURNED TELEMONITOR TO STATION JAILER, CHANGED PT TO GOWN AND RETURNED ALL HER PERSONAL BELONGINGS, ESCORTED PT TO FRONT LOBBY [place] BEING [place]SF[place] [facility] [place] PT IS STABLE
== END 2020-04-12 14:15 | DRG 177 ==
LOC: EEVIPCON 12:44 → MED 12:44 → MTU 13:54
PROVIDERS: ADMIT General Practice; ATTEND General Practice
DX: J69.0 Pneumonitis due to inhalation of food and vomit (principal); E43 Unspecified severe protein-calorie malnutrition; G93.40 Encephalopathy, unspecified; Z68.1 Body mass index [BMI] 19.9 or less, adult; D63.8 Anemia in other chronic diseases classified elsewhere; E11.9 Type 2 diabetes mellitus without complications; E78.5 Hyperlipidemia, unspecified; F20.9 Schizophrenia, unspecified; R26.9 Unspecified abnormalities of gait and mobility; I25.118 Atherosclerotic heart disease of native coronary artery with other forms of angina pectoris; Z20.828 Contact with and (suspected) exposure to other viral communicable diseases; I10 Essential (primary) hypertension; I25.119 Atherosclerotic heart disease of native coronary artery with unspecified angina pectoris; I95.9 Hypotension, unspecified; W19.XXXA Unspecified fall, initial encounter; Y93.89 Activity, other specified; Y92.89 Other specified places as the place of occurrence of the external cause; Y99.8 Other external cause status; Z87.311 Personal history of (healed) other pathological fracture
CPT/HCPCS: 36415; 70450; 71045; 72192; 80048; 80053; 81003; 82140; 82150; 82607; 82728; 82746; 82948; 83036; 83540; 83605; 83690; 83735; 83880; 84100; 84436; 84439; 84443; 84479; 84484; 85025; 85045; 85610; 85730; 87040; 87081; 87086; 87804; 93005; 93880; 96361; 96365; 97110; 97112; 97116; 97161-GP; 97530; 99285; J0696; J1815; J2001; J2060; J3475; J3480; J7030; J7060; Q0092; U0003-CS